=== PATIENT | male | born 1980 | race Caucasian/White ===

== ENCOUNTER 2022-08-03 11:26 | Emergency (ER) | payer OTHER, SELFPAY ==
--- NOTE | 2022-08-03 11:30 | ED.URI ---
HPI - URI/Sore Throat General Chief Complaint: Upper Respiratory Infection Stated Complaint: sore throat chills headaches Time Seen by Provider: 08/03/22 11:31 Source: patient and RN notes reviewed History of Present Illness HPI Narrative: Patient is a 42-year-old male who presents the urgent care with complaints of sore throat, swollen lymph nodes, body aches and chills. Patient states that started on Thursday and he has been taking ibuprofen and DayQuil. Patient states he had a negative COVID test yesterday. States that no one else in the home has been ill. No other acute complaints. No acute distress noted. Patient aware of the plan of care. Some parts of this dictation were generated by voice recognition software and may contain typographical and/or grammatical inaccuracies. Related Data Allergies Allergy/AdvReac Type Severity Reaction Status Date / Time No Known Allergies Allergy Verified 08/03/22 11:48 Review of Systems Review of Systems: CONSTITUTIONAL: Reports of chills and sweats EYES: Denies visual changes, redness, or discharge. ENT: Reports of swollen lymph nodes, sore throat CARDIOVASCULAR: Denies chest pain, palpitations, or edema. RESPIRATORY: Denies cough or dyspnea. GASTROINTESTINAL: Denies abdominal pain, nausea, vomiting, or diarrhea. GENITOURINARY: Denies dysuria or hematuria. SKIN: Denies rash or itching. MUSCULOSKELETAL: Denies back pain, joint pain. Reports of body aches NEUROLOGIC: Denies headache, numbness, or weakness. All other systems reviewed are negative, except as documented in HPI. PMFSH Comments At the time of my signature, I reviewed and agree with the nursing past medical, surgical, social, and family history. There is no relevant family history pertinent to the patient complaint. Exam Narrative: GENERAL: This is a well-nourished, well-developed patient, in no apparent distress. HEAD: normocephalic, atraumatic. EYES: PERRL. Sclera clear/white. Vision is grossly intact. EARS: External ears normal, auditory canals clear and without drainage, TMs normal without perforation. Hearing grossly intact. NOSE: External nose normal with no obvious nasal discharge, nares without redness, no rhinorrhea. THROAT: Mucous membranes moist, moderate bilateral tonsillar edema/erythema with moderate postnasal drainage. NECK: Neck supple, moderate tender submandibular lymphadenopathy CARDIOVASCULAR: Regular rate and rhythm without murmurs, gallops, or rubs. RESPIRATORY: Clear to auscultation. Breath sounds equal bilaterally. No wheezes, rales, or rhonchi. SKIN: warm, intact with no suspicious lesions or rash, good texture and turgor. NEURO: awake, alert, and oriented to person, place and time. There were no obvious focal neurologic abnormalities. EXTREMITIES: No clubbing, cyanosis, or edema. Course Course Level of Care: Express Care Visit Vital Signs Vital signs: Vital Signs Temperature 98.4 F 08/03/22 11:32 Pulse Rate 95 08/03/22 11:32 Respiratory Rate 20 08/03/22 11:32 Blood Pressure 122/93 H 08/03/22 11:32 Pulse Oximetry 99 08/03/22 11:32 Oxygen Delivery Room Air 08/03/22 11:32 Temperature 98.4 F 08/03/22 11:32 Pulse Rate 95 08/03/22 11:32 Respiratory Rate 20 08/03/22 11:32 Blood Pressure 122/93 H 08/03/22 11:32 Pulse Oximetry 99 08/03/22 11:32 Oxygen Delivery Room Air 08/03/22 11:32 Reviewed-patient is informed that they may have pre-hypertension or hypertension based on a blood pressure reading in the department. I recommend the patient call the primary care provider listed on their discharge instructions or a physician of their choice this week to arrange follow-up for further evaluation of possible pre-hypertension or hypertension. MDM - URI/Sore Throat MDM Narrative Medical decision making narrative: Reviewed lab results with the patient. He is aware that flu swab was negative and strep swab was positive. Advised him to complete the oral steroid an
[2022-08-03 11:32] VITALS: BP 122/93; PULSE 95; RESP 20; TEMP 36.9; O2SAT 99
== END 2022-08-03 11:53 | disposition home or self-care (01) ==
PROVIDERS: Emergency Provider Nurse Practitioner Family
DX: J02.0 Streptococcal pharyngitis (principal)
CPT/HCPCS: 87804; 87880; 99203; G0463